=== PATIENT | female | born 1990 | race American Indian/Alaskan Native ===

== ENCOUNTER 2017-04-06 13:47 | Emergency (ER) | payer SELFPAY ==
[2017-04-06 13:48] VITALS: BMI 29.5
[2017-04-06 14:05] VITALS: BP 119/83; PULSE 88; TEMP 98.8
[2017-04-06 14:31] VITALS: RESP 18; O2SAT 98
--- NOTE | 2017-04-06 14:37 | ED PDOC ---
Arrival/HPI - General Historian: Patient - History of Present Illness Time/Duration: < week Symptom Onset: Gradual Symptom Course: Unchanged Activities at Onset: Other <Pura Garcia - Last Filed: 04/06/17 15:07> <Tj Yang - Last Filed: 04/06/17 16:01> - General Chief Complaint: Female Genitourinary Time Seen by Provider: 04/06/17 13:51 - History of Present Illness Narrative History of Present Illness (Text): 04/06/17 14:34 27 year old female with no significant past medical history presents for increased urinary frequency and dyruria. Symptoms began about 1 week ago. Patient has been using over the counter phenazopyridine with minimal relief. Patient denies having any abd pain, back pain, vaginal discharge, dysparaunia. LMP was 03/20. (Pura Garcia) Past Medical History - Provider Review Nursing Documentation Reviewed: Yes - Reproductive Menopause: No - Psychiatric Hx Substance Use: No - Anesthesia Hx Anesthesia: No <Pura Garcia - Last Filed: 04/06/17 15:07> Family/Social History Family/Social History: No Known Family HX Smoking Status: Never Smoked Hx Alcohol Use: Yes Hx Substance Use: No <Pura Garcia - Last Filed: 04/06/17 15:07> Allergies/Home Meds <Pura Garcia - Last Filed: 04/06/17 15:07> <Tj Yang - Last Filed: 04/06/17 16:01> Allergies/Adverse Reactions: Allergies No Known Allergies Allergy (Verified 04/06/17 14:05) Review of Systems - Review of Systems Constitutional: Normal. absent: Fevers, Night Sweats Respiratory: Normal. absent: SOB, Cough, Sputum, Wheezing Cardiovascular: Normal Gastrointestinal: Normal. absent: Abdominal Pain, Constipation, Diarrhea, Nausea, Vomiting Genitourinary Female: Dysuria, Frequency. absent: Hematuria, Vaginal Bleeding, Vaginal Discharge Musculoskeletal: Normal. absent: Back Pain Skin: Normal. absent: Rash, Laceration Neurological: Normal. absent: Headache, Dizziness Endocrine: Normal <Pura Garcia - Last Filed: 04/06/17 15:07> Physical Exam Temperature: Afebrile Blood Pressure: Normal Pulse: Regular Respiratory Rate: Normal Appearance: Positive for: Well-Appearing, Non-Toxic, Comfortable Pain Distress: None Mental Status: Positive for: Alert and Oriented X 3 - Systems Exam Head: Present: Atraumatic, Normocephalic Mouth: Present: Moist Mucous Membranes Respiratory/Chest: Present: Clear to Auscultation, Good Air Exchange. No: Respiratory Distress, Accessory Muscle Use, Wheezes, Rales, Rhonchi Cardiovascular: Present: Regular Rate and Rhythm, Normal S1, S2. No: Murmurs, Rub, Gallop Abdomen: Present: Normal Bowel Sounds. No: Tenderness, Distention, Peritoneal Signs, Rebound Back: Present: Normal Inspection. No: CVA Tenderness Upper Extremity: Present: Normal Inspection. No: Cyanosis, Edema Lower Extremity: Present: Normal Inspection. No: Edema, CALF TENDERNESS Neurological: Present: GCS=15 Skin: Present: Warm, Dry, Normal Color. No: Rashes Psychiatric: Present: Normal Insight, Normal Concentration <Pura Garcia - Last Filed: 04/06/17 15:07> Medical Decision Making - Lab Interpretations I have reviewed the lab results: Yes <Pura Garcia - Last Filed: 04/06/17 15:07> <Tj Yang - Last Filed: 04/06/17 16:01> ED Course and Treatment: Dysuria and increased urine frequency likely due to UTI. Will check: -urinalysis -urine 04/06/17 14:40 Urinalysis is positive for UTI. Patient will be given Bactrim for 3 days for infection. 04/06/17 15:08 (Pura Garcia) 04/06/17 16:00 I have reviewed history and physical, disposition and plan of patient and agree with note. I explained to patient her results and she will f/u with her PMD prn. (Tj Yang) - Lab Interpretations Lab Results: Lab Results 04/06/17 14:39: Urine Color Yellow, Urine Appearance Cloudy, Urine pH 6.0, Ur Specific [place] >= 1.030, Urine Protein >=300 H, Urine Glucose (UA) Negative, Urine Ketones Trace H, Urine Blood Large H, Urine Nitrate Negative, Urine Bilirubin Negative, Urine Urobilinogen 0.2, Ur Leukocyte Esterase Moderate H, Urine RBC 1 - 3, Urine WBC Tntc, Ur Epithelial Cells 1 - 3, Urine Bacteria Mod, Urine HCG, Qual Negative Disposition/Present on Arrival - Present on Arrival Any Indicators Present on Arrival: No History of DVT/PE: No History of Uncontrolled Diabetes: No Urinary Catheter: No History of Decub. Ulcer: No History Surgical Site Infection Following: None - Disposition Have Diagnosis and Disposition been Completed?: Yes Disposition Time: 15:08 Patient Plan: Discharge <Pura Garcia - Last Filed: 04/06/17 15:07> - Present on Arrival Any Indicators Present on Arrival: No - Disposition Have Diagnosis and Disposition been Completed?: Yes <Tj Yang - Last Filed: 04/06/17 16:01> - Disposition Diagnosis: Urinary tract infection Disposition: HOME/ ROUTINE Condition: GOOD Additional Instructions: Carmen Lopez, thank you for letting us take care of you today. Your provider was Dr. Pura Garcia. You were treated for urinary tract infection. The emergency medical care you received today was directed at your acute symptoms. If you were prescribed any medication, please fill it and take as directed. It may take several days for your symptoms to resolve. Return to the Emergency Department if your symptoms worsen, do not improve, or if you have any other problems. Please contact your doctor or call one of the physicians/clinics you have been referred to that are listed on the Patient Visit Information form that is included in your discharge packet. Bring any paperwork you were given at discharge with you along with any medications you are taking to your follow up visit. Our treatment cannot replace ongoing medical care by a primary care provider (PCP) outside of the emergency department. Thank you for allowing the [facility] team to be part of your care today. If you had an X-Ray or CT scan: A Radiologist will review the ED reading if any change in treatment is needed we will contact you. If you had a blood, urine, or wound culture: It will take several days for the results, if any change in treatment is needed we will contact you. If you had an STI test: It will take 48 hours for the results. Please call after 1 week if you have not heard back. Prescriptions: Sulfamethoxazole/Trimethoprim [Bactrim DS 800 mg-160 mg] 1 tab PO BID 3 Days Referrals: PCP,NO [Primary Care Provider] - Follow up with primary Forms: [employer] ([place])
[2017-04-06 14:50] LABS: URINE APPEARANCE CLOUDY (CLEAR); URINE BILIRUBIN NEGATIVE (NEGATIVE); URINE BLOOD LARGE (NEGATIVE); URINE COLOR YELLOW (YELLOW); URINE GLUCOSE (UA) NEGATIVE (NEGATIVE); URINE LEUKOCYTE ESTERASE MODERATE Leu/uL (NEGATIVE); URINE NITRATE NEGATIVE (NEGATIVE); URINE PROTEIN >=300 mg/dL (<30 mg/dL); URINE UROBILINOGEN 0.2 E.U./dL (<1 E.U./dL)
[2017-04-06 14:57] LABS: URINE WBC TNTC /hpf (0-6)
[2017-04-06 14:58] LABS: URINE BACTERIA MOD (NEG)
[2017-04-06 15:11] LABS: HCG,QUALITATIVE URINE NEGATIVE (NEGATIVE)
== END 2017-04-06 15:22 | disposition home or self-care (01) ==
LOC: ED 13:47
DX: N39.0 Urinary tract infection, site not specified (principal)